=== PATIENT | male | born 1990 | race Caucasian/White ===

== ENCOUNTER 2017-03-16 22:45 | Emergency (ER) | payer OTHER ==
--- NOTE | 2017-03-17 03:56 | ED NURSING NOTES ---
Clinical Report - Nurses [facility] [address] [place] [address] 03/16/2017 22:48 Patient: JULISSA KINCAID TRIAGE Triage time 22:45 Mar 16 2017. Acuity: LEVEL 2. Chief Complaint: SEIZURES (two episodes). 22:58 03/16/17. Alert. SEPSIS SCREEN: Sepsis Screen. Negative (no infection suspected/documented). GEOVANNY COMA SCORE: Geovanny Coma Scale: 15- eyes open spontaneously (4); best verbal response- oriented x 4 (5); best motor response- obeys commands (6). --22:58 Hayley Yanes 22:58 03/16/17. BP: 131/50. HR: 93. RR: 28. O2 saturation: 100%. Temp: 98.2 F. Pain level now 10/10. --22:58 Hayley Yanes. Weight: 81.6 kg stated. Height/Length: 70 inches Per Patient. BMI: 25.8. --22:55 Hayley Yanes. Medications Keppra Oral 500 mg, 2x a day. --22:55 Hayley Yanes. Medication/allergy information source: the patient's family. --22:58 Hayley Yanes. Allergies None. --22:55 Hayley Yanes. History Arrived by private vehicle. Historian: father. Accompanied by family and father. Primary physician (Out of state-[place]). This occurred just prior to arrival. ( Father states that pt seized at [place], they were driving home and he seized again. Patient presents with emesis on clothes. Father reports that patient missed keppra dose. [place]. Father states that the seizures cause the patient significant pain. Last seizure was over 3 months ago.). He recently missed dose of anticonvulsant. 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 PAST MEDICAL HX: Seizures. Immunizations: up-to-date. SOCIAL HX: Never smoker. No alcohol use or drug use. NUTRITIONAL RISK ASSESSMENT: The nutritional risk assessment revealed no deficiencies. FUNCTIONAL ASSESSMENT: Functional assessment: no impairments noted. LEARNING NEEDS ASSESSMENT: The learning needs assessment revealed no barriers. FALL RISK ASSESSMENT: Fall risk assessment completed; history of seizure. SKIN INTEGRITY ASSESSMENT: Skin integrity risk assessment completed. No skin integrity risk identified. --22:58 Hayley Yanes. PROBLEMS: Epilepsy. --22:55 Hayley Yanes. ADDITIONAL SURGERIES: Hernia Repair. --22:55 Hayley Yanes. Assessment The patient states feels the same. --22:58 Hayley Yanes. Interventions ID band on patient. --22:58 Hayley Yanes. PHYSICAL ASSESSMENT 22:59 03/16/17. To room via wheelchair. Patient gowned. GENERAL / NEURO / PSYCH: Oriented X 4. Appears in pain. Speech within normal limits. Patient appears well-nourished. HEENT: No signs of head trauma. Mucous membranes are pink. RESPIRATORY: Respirations not labored. CVS: Capillary refill less than 2 seconds. GI / : Abdomen soft and nontender. SKIN: Skin intact. Skin is cool and slightly diaphoretic. Normal skin turgor. --22:59 Hayley Yanes 22:59 03/16/17. ( Left hip pain.). --22:59 Hayley Yanes. NURSING PROGRESS NOTES 23:00 03/16/17. Patient gowned. Reassurance given. Seizure precautions initiated: side rails up x2 and padded, family at bedside and patient in view of nurse's station. Two patient identifiers checked. Call light placed in reach. Side rails up x 2. Bed placed in lowest position. Brakes of bed on. Patient ready for evaluation- chart flagged and ED physician and PA notified. --23:00 Hayley Yanes 23:13 03/16/2017 Keppra (LevETIRAcetam) PO Tablets 500 mg given. Allergies verified and confirmed 5 rights. --23:18 Hayley Yanes 23:15 03/16/2017 Unsuccessful IV access attempt including the right antecubital space and wrist and left upper arm and hand (5 attempts , right foot,). --23:40 Madi SamMarlin 23:38 03/16/2017 Diazepam (Diazepam) IM 10 mg given. Given in the right anterior lateral thigh. Allergies verified and confirmed 5 rights. --23:38 Madi Sam R.N. Seizure precautions maintained: side rails up x2 and padded, suction and family at bedside, patient in view of nurse's station and call gillis in reach. The patient is calm. ( eyes open , grunting). GENERAL / NEURO / PSYCH: Appears to be having generalized seizure activity (lasted approx 2 minutes). SKIN: Skin is profusely diaphoretic. Two patient identifiers checked. Call light placed in reach. Side rails up x 2. Bed placed in lowest position. Brakes of bed on. --23:44 Molly Piña R.N. 23:40 03/16/17. BP: 152/52 taken on the left arm, while lying. HR: 96 (regular and normal rate). RR: 36 (regular, unlabored and rapid). O2 saturation: 99% on room air. Temp: 98.2 F (axillary). -Penaloza pain scale: 0/10. --23:44 Molly Piña R.N. 00:18 03/17/2017 Zofran ODT (Ondansetron) PO Oral Disintegrating Tablets 4 mg given. Allergies verified and confirmed 5 rights. --00:28 Hayley Yanes 00:28 03/17/17. Patient ID band checked for patient name and birthdate: family confirmed. Catheterized urine collected with return of gosia-colored clear urine; sample sent to lab. Specimen labeled in the presence of the patient (Done with YONY Barraza). --00:28 Hayley Yanes 00:52 03/17/17. BP: 97/43. HR: 67. RR: 14. O2 saturation: 100% on nasal cannula at 2 liters/minute. Pain level now: 0/10. Additional comments: Pt placed on NC at 2 LPM for desat to 85% while sleeping, ERMD notified. Father believes that patient has sleep apnea. --00:53 Hayley Yanes 01:24 03/17/17. Care transferred and report given (YONY Wong). --01:24 Hayley Yanes 01:36 03/17/17. BP: 120/83 taken while lying. HR: 87 (regular and normal rate). RR: 14. O2 saturation: 97% on room air. Temp: deferred. FLACC pain scale: 4/10. Face: 1 - occassional grimace or frown, withdrawn, disinterested; legs: 1 - uneasy, restless, tense; activity: 1 - squirming, shifting back and forth, tense; cry: 0 - no cry (awake or asleep); consolability: 1 - reassured by occassional touch/hug/voice, distractable. --01:45 Judith Harrison R.N. 01:37. ( Patient became agitated when this RN went into room to introduce self and to place pulse ox monitor on finger when it had fallen off. Patient slapped at this RNs hand and said "stop that hurts. it's like you're ripping a sticker off." This RN instructed patient to put it on his finger himself, and to use his words rather than slapping.). --01:45 Judith Harrison R.N. 04:12 03/17/2017 Acetaminophen (APAP) PO Tablets 1000 mg given. Allergies verified and confirmed 5 rights. --04:12 Judith Harrison R.N. DISPOSITION / DISCHARGE 04:25 03/17/17. No learning barriers present. Discharge instructions provided and reviewed with the patient and parent. Reviewed warnings. Reviewed medication(s). Treatments reviewed. Reviewed referrals. Patient and parent verbalized understanding. Written instructions provided in Thai. The patient was discharged home and accompanied by parent. He left the Emergency Department ambulatory and via private vehicle. Parent driving. --04:25 Judith Harrison R.N. 03:50 03/17/17. BP: 123/65. HR: 77. RR: 18. O2 saturation: 97%. Temp: deferred. Pain level now: 03/19. --04:25 Judith Harrison R.N. Departure time: 04:14. ( patient given paper pants. Patient's father took patient to car in wheelchair.). --04:26 Judith Harrison R.N. Locked/Released at 03/17/2017 4:30 by Judith Harrison R.N.
--- NOTE | 2017-03-17 03:56 | ED ORDER SUMMARY ---
..... Patient: JULISSA KINCAID OrderSheet [facility] VisitID: [id number] [place] [address] 26y, M Registration Date/Time: 03/16/2017 ORDER SHEET Weight: 81.6 kg (stated) Allergies: None GENERAL ORDERS: Urine Drug Screen Urgent (00:07 03/17/2017 [place]) (Ack 0:09 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 (04:30 03/17/2017)] [Electronically signed by Xavi Whelan Dr. (20:28 03/18/2017)] [Electronically locked/signed by Judith Harrison R.N. (04:03/17/2017)]
--- NOTE | 2017-03-17 03:56 | ED CLINICAL REPORT ---
Clinical Report - Physicians/Mid Levels [facility] [address] [place] [address] 03/16/2017 22:48 Patient: JULISSA KINCAID Time Seen: 22:53; initial patient contact. Arrived- By private vehicle. Historian- patient. HISTORY OF PRESENT ILLNESS Chief Complaint: SINGLE SEIZURE. This occurred just prior to arrival. The patient recovered at the scene. Seizure was witnessed. Had a single isolated seizure. Seizure activity lasted seconds. Generalized motor activity observed. No incontinence or apnea noted. Post-ictally has had confusion. No injuries noted. The patient recently missed one dose of anticonvulsant (Keppra). Similar symptoms previously: Many times. Recent medical care: Not recently seen/assessed. REVIEW OF SYSTEMS No fever or palpitations. He has had nausea and vomiting. All systems otherwise negative, except as recorded above. PAST HISTORY ( Epilepsy. SURGERIES: Hernia Repair.). Medications: Keppra Oral 500 mg, 2x a day. Allergies: None. SOCIAL HISTORY Never smoker. History of drug use. Is a recovering addict. No alcohol use. ADDITIONAL NOTES The nursing notes have been reviewed. PHYSICAL EXAM Vital Signs: 03/16/2017 22:58 BP: 131/50. HR: 93. RR: 28. O2 saturation: 100%. Temp: 98.2 F. Have been reviewed. Hypotensive. Heart rate normal. Tachypneic. Temperature normal. Oxygen saturation normal. Appearance: Appears post-ictal. Eyes: Pupils equal, round and reactive to light. No nystagmus. Extraocular movements normal. ENT: Normal ENT inspection. Moist mucous membranes. Neck: Normal inspection. CVS: Normal heart rate and rhythm. Heart sounds normal. Respiratory: No respiratory distress. Breath sounds normal. Skin: Skin warm and dry. Normal skin color. Neuro: Alert. Oriented X 3. LABS, X-RAYS, AND EKG Laboratory Tests: Urine Drug Screen: (JENIFER: 03/17/2017 00:25) ( MsgRcvd 03/17/2017 00:47) Final results Test Result Flag Units (Reference) AMPHETAMINE/METHAMPHETAMINE NEGATIVE (NEGATIVE) BARBITURATE NEGATIVE (NEGATIVE) BENZODIAZEPINE NEGATIVE (NEGATIVE) CANNABINOID POSITIVE H (NEGATIVE) COCAINE NEGATIVE (NEGATIVE) ECSTASY NEGATIVE (NEGATIVE) METHADONE NEGATIVE (NEGATIVE) OPIATE NEGATIVE (NEGATIVE) The urine drug screen is a qualitative screening test fordrug overdose and abuse. All screen results should beconsidered as presumptive.Drugs screened for are as follows:BenzodiazepinesCocaineAmphetamines/MetamphetaminesTHC (Tetrahydrocannabinol)OpiatesBarbituratesEcstasyMethadonePositive results are unconfirmed. For confirmation, notifythe lab for the specimen to be sent to the reference lab.All confirmations must be performed by a differentmethodology.The ingestion of natural herbal and plant productscontaining Ephedra/Ephedra metabolites can produce in urineone or more substances capable of cross reacting withamphetamine/methamphetamine immunoassays. These testsprovide a preliminary result only. A more specificalternative chemical method must be used to obtain aconfirmed analytical result. . PROGRESS AND PROCEDURES Disposition: Discharged home in good and improved condition. Condition: good. CLINICAL IMPRESSION Generalized seizure. History of idiopathic etiology epilepsy (Due to missed dose of anticonvulsant). No history of poorly controlled epilepsy, history of epilepsy that is treatment resistant or status epilepticus. INSTRUCTIONS Prescription Medications: Keppra 500 mg: take 1 tablet orally every 12 hours. Dispense thirty (30). No refills. Substitution is permissible. Klonopin 1 mg tablet: Take 1 orally every 8 hours as needed for anxiety. Dispense fifteen (15). No refills. Substitution is permissible. Follow-up: Screening today revealed the patient's blood pressure to be in the normal range. Follow-up with: [facility], , , [address], [place] [address]; [facility], , [address] [place] [address], [address], [place] [address] Follow up in about three days. (Electronically signed by Xavi Whelan Dr. 03/18/2017 20:28)
--- NOTE | 2017-03-17 03:56 | ED ORDER SUMMARY ---
..... 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 (04:30 03/17/2017)] [Electronically signed by Xavi Whelan Dr. (20:28 03/18/2017)] [Electronically locked/signed by Judith Harrison R.N. (04:03/17/2017)]
--- NOTE | 2017-03-17 03:56 | ED CLINICAL REPORT ---
Clinical Report - Physicians/Mid Levels [facility] [address] [place] [address] 03/16/2017 22:48 Patient: JULISSA KINCAID Time Seen: 22:53; initial patient contact. Arrived- By private vehicle. Historian- patient. HISTORY OF PRESENT ILLNESS Chief Complaint: SINGLE SEIZURE. This occurred just prior to arrival. The patient recovered at the scene. Seizure was witnessed. Had a single isolated seizure. Seizure activity lasted seconds. Generalized motor activity observed. No incontinence or apnea noted. Post-ictally has had confusion. No injuries noted. The patient recently missed one dose of anticonvulsant (Keppra). Similar symptoms previously: Many times. Recent medical care: Not recently seen/assessed. REVIEW OF SYSTEMS No fever or palpitations. He has had nausea and vomiting. All systems otherwise negative, except as recorded above. PAST HISTORY ( Epilepsy. SURGERIES: Hernia Repair.). Medications: Keppra Oral 500 mg, 2x a day. Allergies: None. SOCIAL HISTORY Never smoker. History of drug use. Is a recovering addict. No alcohol use. ADDITIONAL NOTES The nursing notes have been reviewed. PHYSICAL EXAM Vital Signs: 03/16/2017 22:58 BP: 131/50. HR: 93. RR: 28. O2 saturation: 100%. Temp: 98.2 F. Have been reviewed. Hypotensive. Heart rate normal. Tachypneic. Temperature normal. Oxygen saturation normal. Appearance: Appears post-ictal. Eyes: Pupils equal, round and reactive to light. No nystagmus. Extraocular movements normal. ENT: Normal ENT inspection. Moist mucous membranes. Neck: Normal inspection. CVS: Normal heart rate and rhythm. Heart sounds normal. Respiratory: No respiratory distress. Breath sounds normal. Skin: Skin warm and dry. Normal skin color. Neuro: Alert. Oriented X 3. LABS, X-RAYS, AND EKG Laboratory Tests: Urine Drug Screen: (JENIFER: 03/17/2017 00:25) ( MsgRcvd 03/17/2017 00:47) Final results Test Result Flag Units (Reference) AMPHETAMINE/METHAMPHETAMINE NEGATIVE (NEGATIVE) BARBITURATE NEGATIVE (NEGATIVE) BENZODIAZEPINE NEGATIVE (NEGATIVE) CANNABINOID POSITIVE H (NEGATIVE) COCAINE NEGATIVE (NEGATIVE) ECSTASY NEGATIVE (NEGATIVE) METHADONE NEGATIVE (NEGATIVE) OPIATE NEGATIVE (NEGATIVE) The urine drug screen is a qualitative screening test fordrug overdose and abuse. All screen results should beconsidered as presumptive.Drugs screened for are as follows:BenzodiazepinesCocaineAmphetamines/MetamphetaminesTHC (Tetrahydrocannabinol)OpiatesBarbituratesEcstasyMethadonePositive results are unconfirmed. For confirmation, notifythe lab for the specimen to be sent to the reference lab.All confirmations must be performed by a differentmethodology.The ingestion of natural herbal and plant productscontaining Ephedra/Ephedra metabolites can produce in urineone or more substances capable of cross reacting withamphetamine/methamphetamine immunoassays. These testsprovide a preliminary result only. A more specificalternative chemical method must be used to obtain aconfirmed analytical result. . PROGRESS AND PROCEDURES Disposition: Discharged home in good and improved condition. Condition: good. CLINICAL IMPRESSION Generalized seizure. History of idiopathic etiology epilepsy (Due to missed dose of anticonvulsant). No history of poorly controlled epilepsy, history of epilepsy that is treatment resistant or status epilepticus. INSTRUCTIONS Prescription Medications: Keppra 500 mg: take 1 tablet orally every 12 hours. Dispense thirty (30). No refills. Substitution is permissible. Klonopin 1 mg tablet: Take 1 orally every 8 hours as needed for anxiety. Dispense fifteen (15). No refills. Substitution is permissible. Follow-up: Screening today revealed the patient's blood pressure to be in the normal range. Follow-up with: [facility], , , [address], [place] [address]; [facility], , [address] [place] [address], [address], [place] [address] Follow up in about three days. (Electronically signed by Xavi Whelan Dr. 03/18/2017 20:28)
--- NOTE | 2017-03-18 20:28 | ED DISCHARGE INSTRUCTIONS ---
Patient: JULISSA KINCAID General Instructions [facility] VisitID: [id number] [address], [place] [address] 26y, M Registration Date/Time: 03/16/2017 Generalized seizure. History of idiopathic etiology epilepsy (Due to missed dose of anticonvulsant). No history of poorly controlled epilepsy, history of epilepsy that is treatment resistant or status epilepticus. INSTRUCTIONS Prescription Medications: Keppra 500 mg: take 1 tablet orally every 12 hours. Dispense thirty (30). No refills. Substitution is permissible. Klonopin 1 mg tablet: Take 1 orally every 8 hours as needed for anxiety. Dispense fifteen (15). No refills. Substitution is permissible. Follow-up: Screening today revealed the patient's blood pressure to be in the normal range. Follow-up with: [facility], , , [facility] [address], , [place] [address]; [facility], , [address] [place] [address], [address], [place] [address] Follow up in about three days. ADDITIONAL INFORMATION Recurrent Seizure [Adult] You have had another seizure today. A common cause of recurrent seizure is missing doses of the seizure medicine. However, sometimes seizures are difficult to control even when you take the medicine correctly. If this is the case for you, it may be necessary to increase your dosage or add or change to another medicine. Home Care: For This Seizure: Since seizures are not predictable, you must avoid doing anything that might cause danger to you or others if you have another one. Therefore, until the seizures are under good control, take these precautions: Do not drive a car, bicycle or motorcycle Do not operate dangerous equipment such as power tools Use a shower instead of a bath Do not swim or climb (ladders, trees, roofs) Tell your close friends and relatives about your seizure and teach them what to do for you if it happens again. If you were prescribed a medicine to prevent seizures, take it exactly as directed. It does not work when taken on an "as needed" basis. Missing doses will increase the risk of having another seizure. If you miss a dose, take the missed dose as soon as you remember. If it is almost time for your next dose, skip the missed dose. Restart the medicine at your next scheduled time. Do not take extra medicine to make up the missed dose. Wear a "Medic-Alert" bracelet to advise emergency personnel of your condition. For Future Seizures: If You Are Alone: If you feel a seizure coming on, the best thing to do is to lie down on a bed or on the floor. Lie on your side, not on your back. This will prevent falling, promote drainage of oral secretions out of the mouth and prevent choking. Be sure that you are clear of any objects that might injure you during the seizure. Call for help if there is time. If Someone Is With You: If someone is with you before the seizure, they should help you get in a safe position and call for help. They should not try to force anything in your mouth once the seizure has begun. Doing this may cause injury. Follow Up with your doctor, or as directed by our staff. NOTE: For the safety of yourself and others on the road, certain states require that the treating doctor inform the Public Health Department of any adult who is treated for a seizure and is at risk of further seizures. In this case, the Department of Motor Vehicles (DMV) will be notified and a restriction will be placed on your drivers license until a doctor gives you medical clearance to drive again. Contact your treating doctor to find out if your state requires the reporting of patients with a seizures condition. Get Prompt Medical Attention if any of the following occur: Seizures occurring more often or becoming longer than usual Seizure lasting over 5 minutes No wake-up between seizures Remaining confused for more than 30 minutes after a seizure Injury during a seizure Fever over 100.4F (38.0C) Unusual irritability, drowsiness or confusion Stiff or painful neck Worsening headache Clonazepam Oral tablet What is this medicine? CLONAZEPAM (kloe NA ze kelli) is a benzodiazepine. It is used to treat certain types of seizures. It is also used to treat panic disorder. How should I use this medicine? Take this medicine by mouth with a glass of water. Follow the directions on the prescription label. If it upsets your stomach, take it with food or milk. Take your medicine at regular intervals. Do not take it more often than directed. Do not stop taking or change the dose except on the advice of your doctor or health home care specialist. A special MedGuide will be given to you by the pharmacist with each prescription and refill. Be sure to read this information carefully each time. Talk to your laborer pie bakery regarding the use of this medicine in children. Special care may be needed. What side effects may I notice from receiving this medicine? Side effects that you should report to your doctor or health home care specialist as soon as possible: allergic reactions like skin rash, itching or hives, swelling of the face, lips, or tongue changes in vision confusion depression hallucinations mood changes, excitability or aggressive behavior movement difficulty, staggering or jerky movements muscle cramps, weakness tremors unusual eye movements Side effects that usually do not require medical attention (report to your doctor or health home care specialist if they continue or are bothersome): constipation or diarrhea difficulty sleeping, nightmares dizziness, drowsiness headache increased saliva from your mouth nausea, vomiting What may interact with this medicine? herbal or dietary supplements medicines for depression, anxiety, or psychotic disturbances medicines for fungal infections like fluconazole, itraconazole, ketoconazole, voriconazole medicines for HIV infection or AIDS medicines for sleep prescription pain medicines propantheline rifampin sevelamer some medicines for seizures like carbamazepine, phenobarbital, phenytoin, primidone What if I miss a dose? If you miss a dose, take it as soon as you can. If it is almost time for your next dose, take only that dose. Do not take double or extra doses. Where should I keep my medicine? Keep out of the reach of children. This medicine can be abused. Keep your medicine in a safe place to protect it from theft. Do not share this medicine with anyone. Selling or giving away this medicine is dangerous and against the law. Store at room temperature between 15 and 30 degrees C (59 and 86 degrees F). Protect from light. Keep container tightly closed. Throw away any unused medicine after the expiration date. What should I tell my health care provider before I take this medicine? They need to know if you have any of these conditions: an alcohol or drug abuse problem bipolar disorder, depression, psychosis or other mental health condition glaucoma kidney or liver disease lung or breathing disease myasthenia gravis Parkinson's disease seizures or a history of seizures suicidal thoughts an unusual or allergic reaction to clonazepam, other benzodiazepines, foods, dyes, or preservatives or trying to get breast-feeding What should I watch for while using this medicine? Visit your doctor or health home care specialist for regular checks on your progress. Your body may become dependent on this medicine. If you have been taking this medicine regularly for some time, do not suddenly stop taking it. You must gradually reduce the dose or you may get severe side effects. Ask your doctor or health home care specialist for advice before increasing or decreasing the dose. Even after you stop taking this medicine it can still affect your body for several days. If you suffer from several types of seizures, this medicine may increase the chance of grand mal seizures (epilepsy). Let your doctor or health home care specialist know, he or she may want to prescribe an additional medicine. You may get drowsy or dizzy. Do not drive, use machinery, or do anything that needs mental alertness until you know how this medicine affects you. To reduce the risk of dizzy and fainting spells, do not stand or sit up quickly, especially if you are an older patient. Alcohol may increase dizziness and drowsiness. Avoid alcoholic drinks. Do not treat yourself for coughs, colds or allergies without asking your doctor or health home care specialist for advice. Some ingredients can increase possible side effects. The use of this medicine may increase the chance of suicidal thoughts or actions. Pay special attention to how you are responding while on this medicine. Any worsening of mood, or thoughts of suicide or dying should be reported to your health home care specialist right away. Women who become while using this medicine may enroll in the [place]iepileptic Drug Registry by calling . This registry collects information about the safety of antiepileptic drug use during . You have been given the following additional information: Seizure, Recurrent [Adult] Clonazepam Oral tablet (Electronically signed by Xavi Whelan Dr. 03/18/2017 20:28)
--- NOTE | 2017-03-18 20:28 | ED MAR SUMMARY ---
..... Medication Administration Record [facility] [address] [place] [address] Patient: JULISSA KINCAID Visit ID: [id number] 26y, M Weight: 81.6 kg Height/Length: 70 in BMI: 25.8 ALLERGIES: None Given 23:13 03/16/2017 Hayley Yanes, Medication Administered: KEPPRA [PO] (LEVETIRACETAM), Dose: 500 mg Tablets PO. Medication Ordered: Keppra PO 500 mg (Do not crush or chew, NOW). Given 23:38 03/16/2017 Madi Sam RRadhaN. Medication Administered: DIAZEPAM [IM] (DIAZEPAM), Dose: 10 mg IM. Medication Ordered: Diazepam IM 10 mg (HIGH ALERT MEDICATION, NOW). Given 00:18 03/17/2017 Hayley Yanes, Medication Administered: ZOFRAN ODT [PO] (ONDANSETRON), Dose: 4 mg Oral Disintegrating Tablets PO. Medication Ordered: Zofran ODT PO 4 mg (NOW). Given 04:12 03/17/2017 Judith Harrison, RRadhaN. Medication Administered: ACETAMINOPHEN [PO] (APAP), Dose: 1000 mg Tablets PO. Medication Ordered: Acetaminophen PO 1,000 mg (NOW).
--- NOTE | 2017-03-18 20:28 | ED MED RECONCILIATION SUMMARY ---
Patient: JULISSA KINCAID Medication Reconciliation Report [facility] VisitID: [id number] [address] [place] [address] 26y, M Registration Date/Time: 03/16/2017 Weight: 81.6 kg Height/Length: 70 in. BMI: 25.8 ALLERGIES: None The patient's Home Medications are listed below: THE FOLLOWING MEDICATIONS NEED TO BE RECONCILED: Keppra Oral 500 mg, 2x a day The source(s) of the original Home Medication information: patient's family member The following Medications were given to the patient in the Emergency Department: Keppra [PO] PO 500 mg, administered: 03/16/2017 11:13:00 PM Diazepam [IM] IM 10 mg, administered: 03/16/2017 11:38:00 PM Zofran ODT [PO] PO 4 mg, administered: 03/17/2017 12:18:00 AM Acetaminophen [PO] PO 1000 mg, administered: 03/17/2017 4:12:00 AM The following Medications were prescribed to the patient: Keppra 500 mg: take 1 tablet orally every 12 hours. Dispense thirty (30). No refills. Substitution is permissible. -- Xavi Whelan Dr. Klonopin 1 mg tablet: Take 1 orally every 8 hours as needed for anxiety. Dispense fifteen (15). No refills. Substitution is permissible. -- Xavi Whelan Dr.
--- NOTE | 2017-03-18 20:28 | ED DISCHARGE INSTRUCTIONS ---
Patient: JULISSA KINCAID General Instructions [facility] VisitID: [id number] [address], [place] [address] 26y, M Registration Date/Time: 03/16/2017 Generalized seizure. History of idiopathic etiology epilepsy (Due to missed dose of anticonvulsant). No history of poorly controlled epilepsy, history of epilepsy that is treatment resistant or status epilepticus. INSTRUCTIONS Prescription Medications: Keppra 500 mg: take 1 tablet orally every 12 hours. Dispense thirty (30). No refills. Substitution is permissible. Klonopin 1 mg tablet: Take 1 orally every 8 hours as needed for anxiety. Dispense fifteen (15). No refills. Substitution is permissible. Follow-up: Screening today revealed the patient's blood pressure to be in the normal range. Follow-up with: [facility], , , [facility] [address], , [place] [address]; [facility], , [address] [place] [address], [address], [place] [address] Follow up in about three days. ADDITIONAL INFORMATION Recurrent Seizure [Adult] You have had another seizure today. A common cause of recurrent seizure is missing doses of the seizure medicine. However, sometimes seizures are difficult to control even when you take the medicine correctly. If this is the case for you, it may be necessary to increase your dosage or add or change to another medicine. Home Care: For This Seizure: Since seizures are not predictable, you must avoid doing anything that might cause danger to you or others if you have another one. Therefore, until the seizures are under good control, take these precautions: Do not drive a car, bicycle or motorcycle Do not operate dangerous equipment such as power tools Use a shower instead of a bath Do not swim or climb (ladders, trees, roofs) Tell your close friends and relatives about your seizure and teach them what to do for you if it happens again. If you were prescribed a medicine to prevent seizures, take it exactly as directed. It does not work when taken on an "as needed" basis. Missing doses will increase the risk of having another seizure. If you miss a dose, take the missed dose as soon as you remember. If it is almost time for your next dose, skip the missed dose. Restart the medicine at your next scheduled time. Do not take extra medicine to make up the missed dose. Wear a "Medic-Alert" bracelet to advise emergency personnel of your condition. For Future Seizures: If You Are Alone: If you feel a seizure coming on, the best thing to do is to lie down on a bed or on the floor. Lie on your side, not on your back. This will prevent falling, promote drainage of oral secretions out of the mouth and prevent choking. Be sure that you are clear of any objects that might injure you during the seizure. Call for help if there is time. If Someone Is With You: If someone is with you before the seizure, they should help you get in a safe position and call for help. They should not try to force anything in your mouth once the seizure has begun. Doing this may cause injury. Follow Up with your doctor, or as directed by our staff. NOTE: For the safety of yourself and others on the road, certain states require that the treating doctor inform the Public Health Department of any adult who is treated for a seizure and is at risk of further seizures. In this case, the Department of Motor Vehicles (DMV) will be notified and a restriction will be placed on your drivers license until a doctor gives you medical clearance to drive again. Contact your treating doctor to find out if your state requires the reporting of patients with a seizures condition. Get Prompt Medical Attention if any of the following occur: Seizures occurring more often or becoming longer than usual Seizure lasting over 5 minutes No wake-up between seizures Remaining confused for more than 30 minutes after a seizure Injury during a seizure Fever over 100.4F (38.0C) Unusual irritability, drowsiness or confusion Stiff or painful neck Worsening headache Clonazepam Oral tablet What is this medicine? CLONAZEPAM (kloe NA ze kelli) is a benzodiazepine. It is used to treat certain types of seizures. It is also used to treat panic disorder. How should I use this medicine? Take this medicine by mouth with a glass of water. Follow the directions on the prescription label. If it upsets your stomach, take it with food or milk. Take your medicine at regular intervals. Do not take it more often than directed. Do not stop taking or change the dose except on the advice of your doctor or health career development consultant. A special MedGuide will be given to you by the pharmacist with each prescription and refill. Be sure to read this information carefully each time. Talk to your formula mixer regarding the use of this medicine in children. Special care may be needed. What side effects may I notice from receiving this medicine? Side effects that you should report to your doctor or health career development consultant as soon as possible: allergic reactions like skin rash, itching or hives, swelling of the face, lips, or tongue changes in vision confusion depression hallucinations mood changes, excitability or aggressive behavior movement difficulty, staggering or jerky movements muscle cramps, weakness tremors unusual eye movements Side effects that usually do not require medical attention (report to your doctor or health career development consultant if they continue or are bothersome): constipation or diarrhea difficulty sleeping, nightmares dizziness, drowsiness headache increased saliva from your mouth nausea, vomiting What may interact with this medicine? herbal or dietary supplements medicines for depression, anxiety, or psychotic disturbances medicines for fungal infections like fluconazole, itraconazole, ketoconazole, voriconazole medicines for HIV infection or AIDS medicines for sleep prescription pain medicines propantheline rifampin sevelamer some medicines for seizures like carbamazepine, phenobarbital, phenytoin, primidone What if I miss a dose? If you miss a dose, take it as soon as you can. If it is almost time for your next dose, take only that dose. Do not take double or extra doses. Where should I keep my medicine? Keep out of the reach of children. This medicine can be abused. Keep your medicine in a safe place to protect it from theft. Do not share this medicine with anyone. Selling or giving away this medicine is dangerous and against the law. Store at room temperature between 15 and 30 degrees C (59 and 86 degrees F). Protect from light. Keep container tightly closed. Throw away any unused medicine after the expiration date. What should I tell my health care provider before I take this medicine? They need to know if you have any of these conditions: an alcohol or drug abuse problem bipolar disorder, depression, psychosis or other mental health condition glaucoma kidney or liver disease lung or breathing disease myasthenia gravis Parkinson's disease seizures or a history of seizures suicidal thoughts an unusual or allergic reaction to clonazepam, other benzodiazepines, foods, dyes, or preservatives or trying to get breast-feeding What should I watch for while using this medicine? Visit your doctor or health career development consultant for regular checks on your progress. Your body may become dependent on this medicine. If you have been taking this medicine regularly for some time, do not suddenly stop taking it. You must gradually reduce the dose or you may get severe side effects. Ask your doctor or health career development consultant for advice before increasing or decreasing the dose. Even after you stop taking this medicine it can still affect your body for several days. If you suffer from several types of seizures, this medicine may increase the chance of grand mal seizures (epilepsy). Let your doctor or health career development consultant know, he or she may want to prescribe an additional medicine. You may get drowsy or dizzy. Do not drive, use machinery, or do anything that needs mental alertness until you know how this medicine affects you. To reduce the risk of dizzy and fainting spells, do not stand or sit up quickly, especially if you are an older patient. Alcohol may increase dizziness and drowsiness. Avoid alcoholic drinks. Do not treat yourself for coughs, colds or allergies without asking your doctor or health career development consultant for advice. Some ingredients can increase possible side effects. The use of this medicine may increase the chance of suicidal thoughts or actions. Pay special attention to how you are responding while on this medicine. Any worsening of mood, or thoughts of suicide or dying should be reported to your health career development consultant right away. Women who become while using this medicine may enroll in the [place] Antiepileptic Drug Registry by calling . This registry collects information about the safety of antiepileptic drug use during . You have been given the following additional information: Seizure, Recurrent [Adult] Clonazepam Oral tablet (Electronically signed by Xavi Whelan Dr. 03/18/2017 20:28)
--- NOTE | 2017-03-18 20:28 | ED MAR SUMMARY ---
..... Medication Administration Record [facility] [address] [place] [address] Patient: JULISSA KINCAID Visit ID: [id number] 26y, M Weight: 81.6 kg Height/Length: 70 in BMI: 25.8 ALLERGIES: None Given 23:13 03/16/2017 Hayley Yanes, Medication Administered: KEPPRA [PO] (LEVETIRACETAM), Dose: 500 mg Tablets PO. Medication Ordered: Keppra PO 500 mg (Do not crush or chew, NOW). Given 23:38 03/16/2017 Madi Sam RRadhaN. Medication Administered: DIAZEPAM [IM] (DIAZEPAM), Dose: 10 mg IM. Medication Ordered: Diazepam IM 10 mg (HIGH ALERT MEDICATION, NOW). Given 00:18 03/17/2017 Hayley Yanes, Medication Administered: ZOFRAN ODT [PO] (ONDANSETRON), Dose: 4 mg Oral Disintegrating Tablets PO. Medication Ordered: Zofran ODT PO 4 mg (NOW). Given 04:12 03/17/2017 Judith Harrison, RRadhaN. Medication Administered: ACETAMINOPHEN [PO] (APAP), Dose: 1000 mg Tablets PO. Medication Ordered: Acetaminophen PO 1,000 mg (NOW).
--- NOTE | 2017-03-18 20:28 | ED MED RECONCILIATION SUMMARY ---
Patient: JULISSA KINCAID Medication Reconciliation Report [facility] VisitID: [id number] [address] [place] [address] 26y, M Registration Date/Time: 03/16/2017 Weight: 81.6 kg Height/Length: 70 in. BMI: 25.8 ALLERGIES: None The patient's Home Medications are listed below: THE FOLLOWING MEDICATIONS NEED TO BE RECONCILED: Keppra Oral 500 mg, 2x a day The source(s) of the original Home Medication information: patient's family member The following Medications were given to the patient in the Emergency Department: Keppra [PO] PO 500 mg, administered: 03/16/2017 11:13:00 PM Diazepam [IM] IM 10 mg, administered: 03/16/2017 11:38:00 PM Zofran ODT [PO] PO 4 mg, administered: 03/17/2017 12:18:00 AM Acetaminophen [PO] PO 1000 mg, administered: 03/17/2017 4:12:00 AM The following Medications were prescribed to the patient: Keppra 500 mg: take 1 tablet orally every 12 hours. Dispense thirty (30). No refills. Substitution is permissible. -- Xavi Whelan Dr. Klonopin 1 mg tablet: Take 1 orally every 8 hours as needed for anxiety. Dispense fifteen (15). No refills. Substitution is permissible. -- Xavi Whelan Dr.
== END 2017-03-17 04:14 | disposition home or self-care (01) ==
LOC: ED SRH 22:45
DX: R56.9 Unspecified convulsions (principal); Z79.899 Other long term (current) drug therapy
CPT/HCPCS: 92760; 92761; 92762; 92763; 92764; 92765; 92766; 92767